=== PATIENT | male | born 1975 | race Caucasian/White ===

== ENCOUNTER 2017-08-24 11:37 | Day surgery (SDC) | payer OTHER ==
[2017-08-23 11:04] VITALS: BMI 33.4
[2017-08-24] MEDS ORDERED: ROCURONIUM BROMIDE 50 MG/5 ML VIAL ONE (12:50)
[2017-08-24] MEDS ORDERED: MIDAZOLAM HCL 2 MG/2 ML SINGLE DOSE VIAL ONE (12:50)
[2017-08-24] MEDS ORDERED: PROPOFOL 20 ML ONE ×2 (12:50)
[2017-08-24] MEDS ORDERED: KETOROLAC TROMETHAMINE 30 MG/1 ML VIAL ONE (12:53)
[2017-08-24] MEDS ORDERED: ceFAZolin SODIUM 1 GM VIAL ONE (12:53)
[2017-08-24] MEDS ORDERED: LIDOCAINE HCL 2% JELLY (5 ML/TUBE) ONE (12:53)
[2017-08-24] MEDS ORDERED: LIDOCAINE HCL/PF 2% SDV 5ML VIAL ONE (12:53)
[2017-08-24] MEDS ORDERED: DEXAMETHASONE SOD PHOSPHATE 4 MG/1 ML VIAL ONE ×2 (12:53→13:57)
[2017-08-24] MEDS ORDERED: LIDOCAINE 1%/EPI 1:100000 (50 ML MULTI DOSE VIAL) INF ONE (13:53)
[2017-08-24] MEDS ORDERED: PHENYLEPHRINE HCL 10 MG/1 ML SINGLE DOSE VIAL ONE (13:59)
[2017-08-24] MEDS ORDERED: NEOSTIGMINE METHYLSULFATE 0.5 MG/ML - 10 ML MDV ONE (14:00)
[2017-08-24] MEDS ORDERED: ACETAMINOPHEN 650 MG/20.3 ML ORAL SOLUTION (CUPS) PO PRN (14:46)
[2017-08-24] MEDS ORDERED: morphine CARPU-JECT 2 MG/1 ML DISP.SYRIN IVPUSH PRN (14:46)
[2017-08-24] MEDS ORDERED: oxyCODONE HCL 5 MG TABLET PO PRN ×2 (14:52→15:52)
[2017-08-24] MEDS ORDERED: ONDANSETRON 4 MG/2 ML VIAL IVPUSH PRN (14:52)
[2017-08-24] MEDS ORDERED: LACTATED RINGERS SOLUTION 1,000 ML IV SCH (15:00)
[2017-08-24] MEDS ORDERED: ACETAMINOPHEN 325 MG TABLET (FP) PO PRN (15:52)
[2017-08-24 17:06] VITALS: TEMP 98
[2017-08-24 18:13] VITALS: BP 133/83; PULSE 90
--- NOTE | 2017-08-27 09:55 | OP ---
DATE OF OPERATION: 08/23/2017 PREOPERATIVE DIAGNOSIS: Moderate obstructive sleep apnea and macroglossia. POSTOPERATIVE DIAGNOSIS: Moderate obstructive sleep apnea and macroglossia. PROCEDURE: Modified uvulopalatopharyngoplasty and partial midline glossectomy. INDICATION: The patient is a 42-year-old a male who has chronic serious snoring with insomnia and daytime fatigue, as well as chronic nasal congestion and mouth breathing. He was previously diagnosed with obstructive sleep apnea and initially had opted for targeted surgery to address this nasal obstruction and chronic tonsil issues. He did have moderate improvement of his obstructive sleep apnea down to moderate sleep apnea but he was still having difficulty tolerating a CPAP and is now here for formal sleep apnea surgery. On serial exams, he has soft palate redundancy as well as a class 3 tongue position with macroglossia and tongue base collapse. The patient understood the risks, benefits, and alternatives and wished to proceed. ANESTHESIA: General endotracheal intubation. PROCEDURE: The patient was brought to the operating room and placed in supine position. After adequate induction of anesthesia and placement of an endotracheal tube, a shoulder roll was placed and the patient's face was prepped and draped in the standard sterile fashion. A McIvor mouth gag was placed into the oral cavity and retracted open to expose the oropharynx, which was suspended from the Crespo stand. The tonsils were absent and the tonsillar pillar mucosa was mildly scarred. Anterior and posterior mucosa was then re-. Using a 15 blade, initially approximately 10 mL of 1% lidocaine with 1:100,000 epinephrine were injected into the esophageal mucosa at the superior aspect of the tonsillar pillar mucosa. Dissection was carried superiorly and laterally into the submucosa. A incision was then made extending from the base of the uvula through and through the soft palate superiorly approximately 1.5 cm in both directions and to the left and right of the uvula. Incisions were then made connecting the superior aspect of the previously made incision to the superior aspect of the tonsillar pillar mucosal incisions. The submucosal tissue was then soft palate was then removed. The posterior soft palate was then rotated superiorly and laterally and used to fill the defect that was previously created. Anterior and posterior soft palate mucosa was then re-imbricated using multiple interrupted 3-0 Vicryl sutures and the superior aspect of the tonsillar pillar mucosal incisions aspect of the uvula was then trimmed. The mouth gag was removed with no evidence of injury to dentition or mucosa. Attention was then brought to the tongue base. Then, 2-0 silk was used to retract the tongue anteriorly. The 30-degree endoscope was brought in to visualize the oropharynx and hypopharynx, and the Coblation handpiece was used to form a wedge resection of the posterior tongue along the midline, extending from 1 cm anterior to the vallecula. Dissection anteriorly was carried within 1.5 cm of midline to ensure integrity of the labial neurovascular supply more posteriorly, and dissection was carried more laterally. The lingual tonsils were also ablated as visualized and especially medially. The epiglottis was identified and left intact. No active bleeding was noted. Then, the scope and the 2-0 silk were removed. The patient tolerated the procedure well and was extubated and brought to the recovery room in stable condition. EBL was 30 mL. Specimens were soft palate mucosa. Viviana [id number] cc: Yeny Evans MD
--- NOTE | 2017-08-28 13:16 | PATH ---
Surgical Pathology Report Patient Name: ASHU RAMIRES Med. Rec. #: [id number] /Age/Gender: 1975 (Age: 42) / M Account: [id number] Location: [facility] Taken: 08/24/2017 Received: 08/27/2017 Reported: 08/28/2017 Physicians: Herberth Gonzales M.D. Specimen(s) Received SOFT PALATE Clinical History Obstructive sleep apnea Final Diagnosis SOFT PALATE, UVULOPALATOPHARYNGOPLASTY: BENIGN SQUAMOUS MUCOSA WITH PATCHY MILD CHRONIC INFLAMMATION. Electronically Signed Phani Brasher M.D. Gross Description Received in formalin labeled "soft palate" are 2 ewing, irregular portions of soft tissue measuring 1.3 x 0.5 x 0.3 cm and 1.2 x 0.7 x 0.6 cm, consistent with portions of soft palate. One of the portions is bisected and the specimen is entirely submitted in one cassette. 08/27/201708/27/2017
== END 2017-08-24 18:13 | disposition home or self-care (01) ==
LOC: JASU-SURG 11:37
PROVIDERS: ATTEND Otolaryngology
PROC: 0CB7XZZ Excision of Tongue, External Approach (ICD-10-PCS; principal; 2017-08-24 13:00)
PROC: 0CB70ZZ Excision of Tongue, Open Approach (ICD-10-PCS; 2017-08-24 13:00)
DX: G47.33 Obstructive sleep apnea (adult) (pediatric) (principal); K14.8 Other diseases of tongue
CPT/HCPCS: 88304-TC; 94760

== ENCOUNTER 2017-09-02 11:18 | Emergency (ER) | payer OTHER ==
[2017-09-02 11:24] VITALS: BMI 30.7
[2017-09-02] MEDS ORDERED: SODIUM CHLORIDE 1,000 ML IV STA (11:41)
--- NOTE | 2017-09-02 11:59 | PDOC ---
Attending Attestation - Resident Resident Name: Arturo Beauchamp - ED Attending Attestation I have performed the following: I have examined & evaluated the patient, The case was reviewed & discussed with the resident, I agree w/resident's findings & plan, Exceptions are as noted - HPI HPI: 09/02/17 11:48 42yo M hx sleep apnea s/p partial glossectomy 08/24/17 p/w pain when swallowing. Dx with thrush on Sunday and given nystatin solution which has not helped. Reports he has not been able to drink or eat due to odynaphagia and feels lightheaded due to dehydration. Denies fevers, chills, bleeding, CP, SOB, headache, focal weakness, numbness, abd pain, LE edema, rashes. - Physicial Exam PE: 09/02/17 11:59 GENERAL: Awake, alert, and fully oriented, in no acute distress HEAD: No signs of trauma EYES: PERRLA, EOMI, sclera anicteric, conjunctiva clear ENT: Auricles normal inspection, hearing grossly normal, nares patent, dry MM with white colored plaques that can be scraped off on the tongue. NECK: Normal ROM, supple, no lymphadenopathy, JVD, or masses, or tenderness NEUROLOGICAL: Normal speech, cranial nerves intact, negative pronator drift, 5/ 5 strength in all 4 extremities, normal sensation to light touch in all 4 extremities, normal cerebellar exam, normal gait, normal reflexes and tone SKIN: Warm, Dry, normal turgor, no rashes or lesions noted. LUNGS: Breath sounds equal, clear to auscultation bilaterally. No wheezes, and no crackles HEART: Regular rate and rhythm, normal S1 and S2, no murmurs, rubs or gallops ABDOMEN: Soft, nontender, normoactive bowel sounds. No guarding, no rebound. No masses EXTREMITIES: Normal range of motion, no edema. No clubbing or cyanosis. No cords, erythem - Medical Decision Making 09/02/17 12:15 42-year-old male with a history of sleep apnea status post recent partial glossectomy presents with odynophasia. Vitals remarkable for tachycardia to 110. Exam notable for white removable plaques on the tongue consistent with thrush. Odynophagia is likely secondary to recent glossectomy. Patient also appears dehydrated on exam. Plan: -labs -IVF -HIV (pt gave consent) -discuss with ENT -reassess 09/02/17 13:[address] Guillen from ENT who reports that this odynophagia is likely par for the course and that the recovery time for a glossectomy can take a few weeks. He recommends topical analgesics for the patient. Patient is currently status post 2 L of normal saline and feels much better. Denies any weakness or lightheadedness. Heart rate is down to 90. Patient reports improvement in pain after Magic mouthwash. He has passed PO challenge. He requests to go home. I discussed the physical exam findings, ancillary test results and final diagnoses with the patient. I answered all of the patient's questions. The patient was satisfied with the care received and felt comfortable with the discharge plan and treatment plan. The patient will call their primary care physician within 24 hours to arrange follow-up and will return to the Emergency Department with any new, persistent or worsening symptoms.
--- NOTE | 2017-09-02 12:00 | PDOC ---
History of Present Illness - General Chief Complaint: Weakness Stated Complaint: POST-SURG COMPLICATIONS Time Seen by Provider: 09/02/17 11:29 History Source: Patient Exam Limitations: No Limitations - History of Present Illness Initial Comments: 09/02/17 11:55 Patient is a 42M with history of HLD and sleep apnea s/p partial glossectomy here today complaining of odynophagia, worse over the past 4 days. His surgery was on 08/24. His throat pain had been decreasing until , when he developed thrush. He was prescribed nystatin, which he has been taking three times a day. He reports that he hasn't been able to take PO liquids or solids for 48 hours. He denies nausea, vomiting, and fevers. He endorses chills. He denies chest pain, shortness of breath and abdominal pain. He reports that he was tested for HIV years ago and was negative, but he has not been tested recently. Past History - Past Medical History Allergies/Adverse Reactions: Allergies Allergy/AdvReac Type Severity Reaction Status Date / Time No Known Drug Allergies Allergy Verified 09/02/17 11:24 Home Medications: Ambulatory Orders Atorvastatin Ca [Lipitor] 20 mg PO HS 08/23/17 Mag Hydrox/Alh/Smc/Dpha/Lido [Magic Mouthwash *Sjr Formula* -] 5 ml MM Q6HPO # 240 ml 09/02/17 Anemia: No Asthma: No Cancer: No Cardiac Disorders: No CVA: No COPD: No CHF: No Dementia: No Diabetes: No GI Disorders: No Disorders: No HTN: No Hypercholesterolemia: Yes Liver Disease: No Seizures: No Thyroid Disease: No - Suicide/Smoking/Psychosocial Hx Smoking History: Never smoked Hx Alcohol Use: No Drug/Substance Use Hx: No Substance Use Type: Alcohol Hx Substance Use Treatment: No Review of Systems - Review of Systems Comments:: 09/02/17 11:59 GENERAL/CONSTITUTIONAL: No fever. No weakness. HEAD, EYES, EARS, NOSE AND THROAT: No change in vision. Positive for sore throat. CARDIOVASCULAR: No chest pain or shortness of breath RESPIRATORY: No cough, wheezing, or hemoptysis. GASTROINTESTINAL: No nausea, vomiting, diarrhea or constipation. GENITOURINARY: No dysuria, frequency, or change in urination. MUSCULOSKELETAL: No joint or muscle swelling or pain. No neck or back pain. SKIN: No rash NEUROLOGIC: No headache, vertigo, loss of consciousness, or change in strength/ sensation. HEMATOLOGIC/LYMPHATIC: No anemia, easy bleeding, or history of blood clots. ALLERGIC/IMMUNOLOGIC: No hives or skin allergy. *Physical Exam - Vital Signs Last Vital Signs Temp Pulse Resp BP Pulse Ox 98.2 F 110 H 16 141/82 98 09/02/17 11:19 09/02/17 11:19 09/02/17 11:19 09/02/17 11:19 09/02/17 11:19 - Physical Exam Comments: 09/02/17 12:00 GENERAL: Awake, alert, and fully oriented, in no acute distress HEAD: No signs of trauma, normocephalic, atraumatic EYES: PERRLA, EOMI, sclera anicteric, conjunctiva clear ENT: Auricles normal inspection, hearing grossly normal, nares patent, oropharnyx has several white plaques. Dry Mucosa NECK: Normal ROM, supple, no lymphadenopathy, JVD, or masses LUNGS: No distress, speaks full sentences, clear to auscultation bilaterally HEART: Tachycardic, regular rhythm, normal S1 and S2, no murmurs, rubs or gallops, peripheral pulses normal and equal bilaterally. ABDOMEN: Soft, nontender, normoactive bowel sounds. No guarding, no rebound. No masses EXTREMITIES: Normal inspection, Normal range of motion, no edema. No clubbing or cyanosis. NEUROLOGICAL: Cranial nerves II through XII grossly intact. Normal speech, normal gait, no focal sensorimotor deficits SKIN: Warm, Dry,no rashes or lesions noted. ED Treatment Course - LABORATORY CBC & Chemistry Diagram: 09/02/17 12:10 09/02/17 12:10 Medical Decision Making - Medical Decision Making 09/02/17 12:01 42M with history of sleep apnea s/p partial tongue removal here today with odynophagia. Tachycardic, vital signs stable. Patient has thrush, suspect that this is the cause of his decreased PO intake. Will evaluate with CBC, HIV, and CMP labs. Will consult Dr Gonzales. 09/02/17 12:30 Dr Guillen consulted, covering for Dr Gonzales. He advises that patient takes magic mouthwash to control symptoms. He also advises that thrush is likely post operation complication. Appreciate recs. 09/02/17 13:05 Laboratory Tests 09/02/17 09/02/17 09/02/17 12:10 12:10 12:10 WBC 9.7 Hgb 16.2 Hct 48.3 Plt Count 277 BUN 15 Creatinine 1.1 HIV 1&2 Antibody Screen Negative HIV P24 Antigen Negative CBC normal, kidney function normal, HIV negative. *DC/Admit/Observation/Transfer Diagnosis at time of Disposition: Odynophagia - Discharge Dispostion Disposition: HOME Condition at time of disposition: Good - Prescriptions Prescriptions: Mag Hydrox/Alh/Smc/Dpha/Lido [Magic Mouthwash *Sjr Formula* -] 5 ml MM Q6HPO # 240 ml - Patient Instructions Additional Instructions: Please see Dr. Gonzales within 1 week. Return to the emergency department immediately for any new or concerning symptoms or if your symptoms get worse. Thank you for coming to the Emergency Department today for your care. It was a pleasure to see you today. Please note that your evaluation is INCOMPLETE until you follow-up with your doctor.
[2017-09-02 12:15] LABS: MCH 29.9 pg (25.7-33.7); MCHC 33.6 g/dl (32.0-35.9); MEAN CELL VOLUME 89.2 fl (80-96); PLATELET COUNT 277 K/MM3 (134-434); WHITE BLOOD COUNT 9.7 K/mm3 (4.0-10.0)
[2017-09-02] MEDS ORDERED: SODIUM CHLORIDE 0.9% 500 ML INFUS.BAG IV ONE (12:19)
[2017-09-02] MEDS ORDERED: MAG HYDROX/ALH/SMC/DPHA/LIDO 240 ML MOUTHWASH MM ONE (12:29)
[2017-09-02 12:36] LABS: ALK PHOS 69 U/L (45-117); ANION GAP 12 (8-16); BILIRUBIN,TOTAL 0.7 mg/dL (0.2-1.0); CALCIUM 9.3 mg/dL (8.5-10.1); CO2 26 mmol/L (21-32); CREATININE 1.1 mg/dL (0.7-1.3); GLUCOSE,RANDOM 91 mg/dL (74-106); SGOT/AST 17 U/L (15-37); SGPT/ALT 31 U/L (12-78); TOT PROT 7.9 g/dl (6.4-8.2)
[2017-09-02] MEDS ORDERED: LIDOCAINE VISCOUS 2% ORAL/TOP 20 ML UNIT-DOSE CUP ONE (12:36)
[2017-09-02] MEDS ORDERED: MAG HYDROX/AL HYDROX/SIMETH 30 ML UNIT-DOSE CUP ONE (12:36)
[2017-09-02 12:48] LABS: HIV 1 & 2 AB NEGATIVE; HIV 1 AGp24 NEGATIVE
[2017-09-02 13:10] LABS: MAGNESIUM 2.3 mg/dL (1.8-2.4)
[2017-09-02 14:10] VITALS: BP 138/80; PULSE 92; TEMP 98.1
== END 2017-09-02 14:20 | disposition home or self-care (01) ==
LOC: JER 11:18
PROC: 3E0333Z Introduction of Anti-inflammatory into Peripheral Vein, Percutaneous Approach (ICD-10-PCS; principal; 2017-09-02)
PROC: 3E0337Z Introduction of Electrolytic and Water Balance Substance into Peripheral Vein, Percutaneous Approach (ICD-10-PCS; 2017-09-02)
DX: N20.0 Calculus of kidney (principal); E78.00 Pure hypercholesterolemia, unspecified
CPT/HCPCS: 36415; 80053; 83735; 85027; 87389; 99282-25

== ENCOUNTER 2017-09-05 17:52 | Emergency (ER) | payer OTHER ==
[2017-09-05 17:59] VITALS: TEMP 98.6; BMI 29.6
--- NOTE | 2017-09-05 19:56 | PDOC ---
History of Present Illness - General Chief Complaint: Pain Stated Complaint: abd pain Time Seen by Provider: 09/05/17 19:54 - History of Present Illness Initial Comments: 09/05/17 19:56 Mr. Guerrero is a 42 yo male with a significant past medical history of recent surgery to stop snoring and presentation 3 days ago for weakness and dehydration who presents to the emergency department complaining of lower left abdominal pain since 0630 this AM. He says that the pain woke him up and has remained constant and stabbing all day. The patient denies chest pain, shortness of breath, headache and dizziness. Denies fever, chills, nausea, vomit, diarrhea and constipation. Denies dysuria, frequency, urgency and hematuria. Allergies: NKDA Past surgical history: Tonsillectomy and Uvulopalatopharyngoplasty Past History - Past Medical History Allergies/Adverse Reactions: Allergies Allergy/AdvReac Type Severity Reaction Status Date / Time No Known Drug Allergies Allergy Verified 09/05/17 20:16 Home Medications: Ambulatory Orders Atorvastatin Ca [Lipitor] 20 mg PO HS 08/23/17 Ibuprofen 800 mg PO TID #30 tablet 09/05/17 Oxycodone HCl/Acetaminophen [Percocet 5-325 mg Tablet] 1 - 2 tab PO Q4H #20 tablet MDD 4 09/05/17 Anemia: No Asthma: No Cancer: No Cardiac Disorders: No CVA: No COPD: No CHF: No Dementia: No Diabetes: No GI Disorders: No Disorders: No HTN: No Hypercholesterolemia: Yes Liver Disease: No Seizures: No Thyroid Disease: No - Suicide/Smoking/Psychosocial Hx Smoking History: Never smoked Information on smoking cessation initiated: No Hx Alcohol Use: No Drug/Substance Use Hx: No Substance Use Type: None Hx Substance Use Treatment: No Review of Systems - Review of Systems Comments:: 09/05/17 19:56 GENERAL/CONSTITUTIONAL: No fever or chills. No weakness. HEAD, EYES, EARS, NOSE AND THROAT: No change in vision. No ear pain or discharge. No sore throat. CARDIOVASCULAR: No chest pain or shortness of breath RESPIRATORY: No cough, wheezing, or hemoptysis. GASTROINTESTINAL: +Lower left abdominal pain 9/10 without nausea, vomiting, diarrhea or constipation. GENITOURINARY: No dysuria, frequency, or change in urination. MUSCULOSKELETAL: No joint or muscle swelling or pain. No neck or back pain. SKIN: No rash NEUROLOGIC: No headache, vertigo, loss of consciousness, or change in strength/ sensation. ENDOCRINE: No increased thirst. No abnormal weight change HEMATOLOGIC/LYMPHATIC: No anemia, easy bleeding, or history of blood clots. ALLERGIC/IMMUNOLOGIC: No hives or skin allergy. *Physical Exam - Vital Signs Last Vital Signs Temp Pulse Resp BP Pulse Ox 98.6 F 107 H 19 112/92 100 09/05/17 17:54 09/05/17 17:54 09/05/17 17:54 09/05/17 17:54 09/05/17 17:54 - Physical Exam Comments: 09/05/17 19:56 GENERAL: Awake, alert, and fully oriented, in no acute distress HEAD: No signs of trauma, normocephalic, atraumatic EYES: PERRLA, EOMI, sclera anicteric, conjunctiva clear ENT: Auricles normal inspection, hearing grossly normal, nares patent, oropharynx clear without exudates. Moist mucosa NECK: Normal ROM, supple, no lymphadenopathy, JVD, or masses LUNGS: No distress, speaks full sentences, clear to auscultation bilaterally HEART: Regular rate and rhythm, normal S1 and S2, no murmurs, rubs or gallops, peripheral pulses normal and equal bilaterally. ABDOMEN: +Tender to LLQ. Soft, normoactive bowel sounds. No guarding, no rebound. No masses EXTREMITIES: Normal inspection, Normal range of motion, no edema. No clubbing or cyanosis. NEUROLOGICAL: Cranial nerves II through XII grossly intact. Normal speech, normal gait, no focal sensorimotor deficits SKIN: Warm, Dry, normal turgor, no rashes or lesions noted. ED Treatment Course - LABORATORY CBC & Chemistry Diagram: 09/05/17 20:30 09/05/17 21:20 Medical Decision Making - Medical Decision Making 09/05/17 22:38 CT scan showed non-obstructing 5mm stone in left ureteropelvic junction. Discharging to home with pain control. *DC/Admit/Observation/Transfer Diagnosis at time of Disposition: Kidney stone on left side - Prescriptions Prescriptions: Ibuprofen 800 mg PO TID #30 tablet Oxycodone HCl/Acetaminophen [Percocet 5-325 mg Tablet] 1 - 2 tab PO Q4H #20 tablet MDD 4 - Referrals Referrals: Yeny Evans MD [Primary Care Provider] - Jesus Michael MD [Staff Physician] - - Patient Instructions Printed Discharge Instructions: DI for Kidney Stones
[2017-09-05] MEDS ORDERED: SODIUM CHLORIDE 1,000 ML IV STA (20:22)
--- NOTE | 2017-09-05 20:23 | PDOC ---
Attending Attestation - HPI HPI: 09/05/17 20:30 42 yr old male, with significant past medical history of HLD, sleep apnea s/p partial glossectomy on 08/24/17, who presents to the emergency room complaining of left sided abdominal pain that is sharp, constant and 9/10 in severity. He notes that he was seen in the ED on 09/02/17 for throat pain, which has gotten better, and states that he is taking nystatin for thrush. Denies fever, chills, nausea, vomiting. Denies diarrhea, constipation. Denies recent travel. Denies sick contact. Denies chest pain, SOB. Allergies: NKDA PCP: Dr. Evans <Francheska Silverio - Last Filed: 09/05/17 20:29> - Resident Resident Name: Thaddeus Husain - ED Attending Attestation I have performed the following: I have examined & evaluated the patient, The case was reviewed & discussed with the resident, I agree w/resident's findings & plan, Exceptions are as noted - Physicial Exam PE: 09/05/17 22:31 *Physical Exam General Appearance: Yes: Appropriately Dressed. No: Apparent Distress, Intoxicated HEENT: positive: EOMI, RADHA, Normal ENT Inspection, Normal Voice, TMs Normal, Pharynx Normal. negative: Pale Conjunctivae, Photophobia, Scleral Icterus (R), Scleral Icterus (L) Neck: positive: Trachea midline, Normal Thyroid, Supple. negative: Tender, Rigid, Carotid bruit, Stridor, Lymphadenopathy (R), Lymphadenopathy (L), Thyromegaly Respiratory/Chest: positive: Lungs Clear, Normal Breath Sounds. negative: Chest Tender, Respiratory Distress, Accessory Muscle Use, Labored Respiration, RES, Crackles, Rales, Rhonchi, Stridor, Wheezing, Dullness Cardiovascular: positive: Regular Rhythm, Regular Rate, S1, S2. negative: Edema , JVD, Murmur, Bradycardia, Tachycardia Vascular Pulses: Dorsalis-Pedis (R): 2+, Doralis-Pedis (L): 2+ Gastrointestinal/Abdominal: positive: Normal Bowel Sounds, Flat, Soft. LLQ tenderness negative: , Organomegaly, Pulsatile Mass, Increased Bowel Sounds, Decreased BS, Distended, Guarding, Rebound, Hernia, Hepatomegaly, Spleenomegaly Lymphatic: negative: Adenopathy, Tenderness Musculoskeletal: positive: Normal Inspection. negative: CVA Tenderness, Decreased Range of Motion Extremity: positive: Normal Capillary Refill, Normal Inspection, Normal Range of Motion, Pelvis Stable. negative: Tender, Pedal Edema, Swelling, Erythema Integumentary: positive: Normal Color, Dry, Warm. negative: Cyanotic, Erythema , Jaundice, Rash Neurologic: positive: hose wrapper II-XII NML intact, Fully Oriented, Alert, Normal Mood/ Affect, Motor Strength 5/5. negative: EOM Palsy, Facial Droop, Sensory Deficit - Medical Decision Making 09/05/17 22:33 Pt treated and released. Referred to Urology for Left sided kidney stones <Dexter White - Last Filed: 09/05/17 22:37> Discharge Disposition - Discharge Dispostion Admit: No <Dexter White - Last Filed: 09/05/17 22:37> - Diagnosis Kidney stone on left side - Discharge Dispostion Disposition: HOME Condition at time of disposition: Stable - Referrals Referrals: Yeny Evans MD [Primary Care Provider] - Jesus Michael MD [Staff Physician] - - Patient Instructions Printed Discharge Instructions: DI for Kidney Stones
[2017-09-05 20:39] LABS: BASOPHIL 0.1 % (0-2.0); EOSINOPHIL 0.1 % (0-4.5); MCH 29.4 pg (25.7-33.7); MCHC 32.9 g/dl (32.0-35.9); MEAN CELL VOLUME 89.2 fl (80-96); MEAN PLT VOLUME 8.2 fl (7.5-11.1); NEUTROPHILS 78.3 % (42.8-82.8); PLATELET COUNT 246 K/MM3 (134-434); RDW 12.8 % (11.9-15.9); WHITE BLOOD COUNT 11.3 K/mm3 (4.0-10.0)
[2017-09-05 21:53] VITALS: BP 138/72; PULSE 82
[2017-09-05] MEDS ORDERED: KETOROLAC TROMETHAMINE 30 MG/1 ML VIAL IVPUSH ONE (21:57)
[2017-09-05 21:59] LABS: ALBUMIN 3.7 g/dl (3.4-5.0); ALK PHOS 62 U/L (45-117); ANION GAP 9 (8-16); BILIRUBIN,TOTAL 0.3 mg/dL (0.2-1.0); CALCIUM 9.2 mg/dL (8.5-10.1); CO2 28 mmol/L (21-32); CREATININE 1.5 mg/dL (0.7-1.3); GLUCOSE,RANDOM 118 mg/dL (74-106); SGOT/AST 21 U/L (15-37); SGPT/ALT 27 U/L (12-78); TOT PROT 7.6 g/dl (6.4-8.2)
[2017-09-05] MEDS ORDERED: KETOROLAC TROMETHAMINE 30 MG/1 ML VIAL ONE (22:02)
[2017-09-05] MEDS ORDERED: MAGNESIUM HYDROX 2400MG/30ML ORAL SUSPENSION 30 ML CUP PO ONE (22:06)
== END 2017-09-05 22:44 | disposition home or self-care (01) ==
LOC: JER 17:52
PROC: 3E0333Z Introduction of Anti-inflammatory into Peripheral Vein, Percutaneous Approach (ICD-10-PCS; principal; 2017-09-05)
PROC: 3E0337Z Introduction of Electrolytic and Water Balance Substance into Peripheral Vein, Percutaneous Approach (ICD-10-PCS; 2017-09-05)
DX: N20.0 Calculus of kidney (principal); E78.00 Pure hypercholesterolemia, unspecified
CPT/HCPCS: 36415; 74176-TC; 80053; 85025; 99283-25